=== PATIENT | male | born 1960 | race Caucasian/White ===

== ENCOUNTER 2022-04-18 00:42 | Inpatient (IN) | payer SELFPAY ==
[2022-04-18] MEDS ORDERED: SODIUM CHLORIDE 0.9% 500 ML INFUS.BAG IV ONE (01:31)
[2022-04-18] MEDS ORDERED: ONDANSETRON 4 MG/2 ML VIAL IVPUSH ONE (01:31)
[2022-04-18] MEDS ORDERED: ACETAMINOPHEN 1000 MG/100 ML BAG IVPB ONE (01:31)
[2022-04-18 02:03] LABS: HEMATOCRIT 42.4 % (35.4-49); HEMOGLOBIN 14.9 GM/dL (11.7-16.9); MCH 31.7 pg (25.7-33.7); MEAN CELL VOLUME 90.4 fl (80-96); MEAN PLT VOLUME 7.9 fl (7.5-11.1); PLATELET COUNT 250 10^3/uL (134-434); RDW 12.3 % (11.9-15.9); WHITE BLOOD COUNT 11.3 K/mm3 (4.0-10.0)
[2022-04-18 02:28] LABS: CHLORIDE 104 mmol/L (98-107); SODIUM 140 mmol/L (136-145)
[2022-04-18 02:30] LABS: CALCIUM 9.2 mg/dL (8.5-10.1)
[2022-04-18 02:31] LABS: ALBUMIN 3.9 g/dl (3.4-5.0); ANION GAP 13 MMOL/L (8-16); BLOOD UREA NITROGEN 12.9 mg/dL (7-18); CO2 24 mmol/L (21-32); GLUCOSE,RANDOM 207 mg/dL (74-106); MAGNESIUM 1.8 mg/dL (1.8-2.4)
[2022-04-18 02:34] LABS: SGOT/AST 31 U/L (15-37); SGPT/ALT 28 U/L (13-61)
[2022-04-18 02:35] LABS: BILIRUBIN,TOTAL 0.7 mg/dL (0.2-1)
[2022-04-18 02:36] LABS: TOT PROT 8.4 g/dl (6.4-8.2)
[2022-04-18 02:37] LABS: ALK PHOS 135 U/L (45-117)
[2022-04-18 02:42] LABS: LACTIC ACID 5.4 mmol/L (0.4-2.0)
[2022-04-18 02:43] LABS: LIPASE 3458 U/L (73-393)
[2022-04-18] MEDS ORDERED: morphine CARPU-JECT 4 MG/1 ML DISP.SYRIN IVPUSH ONE (02:47)
[2022-04-18] MEDS ORDERED: LACTATED RINGERS SOLUTION 1,000 ML/1,000 ML INFUS.BAG IV SCH (03:00)
[2022-04-18 03:48] LABS: ANISOCYTOSIS 0; HELMET CELLS 0; HOWELL-JOLLY BODIES 0; MACROCYTOSIS 0; OVALOCYTE 0; ROULEAU 0; SICKELED CELLS 0; TARGET CELLS 0; TEAR DROP CELLS 0; TOXIC GRANULATION 0
[2022-04-18] MEDS ORDERED: morphine SULFATE 4 MG/ML VIAL ONE (03:52)
[2022-04-18 05:51] LABS: PH,URINE 6.5 (5.0-8.0); URINE APPEARANCE CLEAR; URINE BILIRUBIN NEGATIVE (NEGATIVE); URINE COLOR YELLOW; URINE GLUCOSE (UA) NEGATIVE (NEGATIVE); URINE KETONE NEGATIVE (NEGATIVE); URINE LEUK ESTERASE NEGATIVE (NEGATIVE); URINE NITRITE NEGATIVE (NEGATIVE); URINE PROTEIN NEGATIVE (NEGATIVE); URINE UROBILINOGEN 0.2 mg/dL (0.2-1.0)
[2022-04-18 06:55] LABS: LACTIC ACID 3.6 mmol/L (0.4-2.0)
[2022-04-18] MEDS: LACTATED RINGERS SOLUTION 1,000 ML/1,000 ML INFUS.BAG IV SCH (07:25)
[2022-04-18] MEDS: INSULIN SLIDING SCALE (NOVOLOG) 1 VIAL SQ SCH ×3 (07:30→22:46)
[2022-04-18 08:21] LABS: HEMATOCRIT 38.8 % (35.4-49); HEMOGLOBIN 13.3 GM/dL (11.7-16.9); MCH 30.9 pg (25.7-33.7); MCHC 34.3 g/dl (32.0-35.9); MEAN CELL VOLUME 90.2 fl (80-96); MEAN PLT VOLUME 8.3 fl (7.5-11.1); PLATELET COUNT 210 10^3/uL (134-434); RDW 12.5 % (11.9-15.9); WHITE BLOOD COUNT 11.4 K/mm3 (4.0-10.0)
[2022-04-18 08:44] LABS: MAGNESIUM 1.7 mg/dL (1.8-2.4)
[2022-04-18 08:45] LABS: CALCIUM 8.2 mg/dL (8.5-10.1)
[2022-04-18 08:46] LABS: BLOOD UREA NITROGEN 8.5 mg/dL (7-18); CREATININE 0.7 mg/dL (0.55-1.3)
[2022-04-18 08:48] LABS: TOT PROT 6.9 g/dl (6.4-8.2)
[2022-04-18 08:49] LABS: PHOSPHOROUS 2.4 mg/dL (2.5-4.9)
[2022-04-18 08:50] LABS: BILIRUBIN,TOTAL 0.8 mg/dL (0.2-1)
[2022-04-18] MEDS ORDERED: THIAMINE HCL 100 MG TABLET (FP) ONE (09:08)
[2022-04-18] MEDS ORDERED: FOLIC ACID 1 MG TABLET (FP) ONE (09:08)
[2022-04-18] MEDS ORDERED: ENOXAPARIN NA (PORCINE) 40 MG/0.4 ML DISP.SYRIN SQ ONE (09:09)
[2022-04-18] MEDS: ENOXAPARIN NA (PORCINE) 40 MG/0.4 ML DISP.SYRIN SQ SCH (09:34)
[2022-04-18] MEDS ORDERED: THIAMINE HCL 100 MG TABLET (FP) PO SCH (10:00)
[2022-04-18] MEDS ORDERED: FOLIC ACID 1 MG TABLET (FP) PO SCH (10:00)
[2022-04-18] MEDS ORDERED: INSULIN (LEVEMIR) 100 UNITS/ML UNITS SQ SCH (10:45)
[2022-04-18] MEDS ORDERED: FOLIC ACID 5 MG/1 ML SQ SCH (10:45)
[2022-04-18] MEDS ORDERED: LORazepam 2 MG/ML SDV VIAL IVPUSH PRN (10:45)
[2022-04-18] MEDS ORDERED: THIAMINE HCL 200 MG/2 ML VIAL IVPB SCH (10:45)
[2022-04-18] MEDS ORDERED: MULTIVIT INJ. ADULT COMBO WITH VIT K 1 COMBO 10 ML VIAL IV SCH (10:45)
[2022-04-18] MEDS ORDERED: POTASSIUM PHOSPHATE 30 MM in SODIUM CHLORIDE 500 ML IVPB ONE (10:46)
[2022-04-18] MEDS ORDERED: MAGNESIUM 2GM/50ML STERILE WATER IVPB IVPB ONE (10:46)
[2022-04-18] MEDS ORDERED: FOLIC ACID INJECTION - 1 MG, THIAMINE HCL 100 MG, MULTIVIT INJECTION ADULT 10 ML in SOD... IVPB ONE (11:21)
[2022-04-18] MEDS ORDERED: MAGNESIUM SULFATE IN WATER 2 GM/50 ML IVPB IVPB ONE (11:30)
[2022-04-18] MEDS ORDERED: KCL 10 MEQ IVPB 10 MEQ/100 ML INFUS.BAG IVPB ONE (11:35)
[2022-04-18] MEDS: KCL 10 MEQ IVPB 10 MEQ/100 ML INFUS.BAG IVPB SCH ×3 (11:49→13:57)
[2022-04-18] MEDS: INSULIN (LEVEMIR) 100 UNITS/ML UNITS SQ SCH (22:46)
[2022-04-19] MEDS: LACTATED RINGERS SOLUTION 1,000 ML/1,000 ML INFUS.BAG IV SCH ×2 (06:59→16:00)
[2022-04-19 09:04] LABS: BASO % 0.2 % (0-2.0); EOS % 0.1 % (0-4.5); HEMATOCRIT 37.1 % (35.4-49); HEMOGLOBIN 12.5 GM/dL (11.7-16.9); LYMPH % 6.1 % (8-40); MCH 30.8 pg (25.7-33.7); MCHC 33.8 g/dl (32.0-35.9); MEAN CELL VOLUME 91.2 fl (80-96); MEAN PLT VOLUME 8.5 fl (7.5-11.1); NEUT % 86.6 % (42.8-82.8); PLATELET COUNT 173 10^3/uL (134-434); RBC 4.06 M/mm3 (4.00-5.60); RDW 12.1 % (11.9-15.9); WHITE BLOOD COUNT 11.1 K/mm3 (4.0-10.0)
[2022-04-19 09:33] LABS: CALCIUM 8.6 mg/dL (8.5-10.1)
[2022-04-19 09:34] LABS: ALBUMIN 2.8 g/dl (3.4-5.0); BLOOD UREA NITROGEN 7.4 mg/dL (7-18)
[2022-04-19 09:37] LABS: BILIRUBIN,TOTAL 1.5 mg/dL (0.2-1); CREATININE 0.5 mg/dL (0.55-1.3); TOT PROT 6.6 g/dl (6.4-8.2)
[2022-04-19] MEDS: INSULIN (LEVEMIR) 100 UNITS/ML UNITS SQ SCH (10:00)
[2022-04-19 10:10] LABS: ERYTHROCYTE SEDIMENTATION RATE 65 mm/hr (0-20)
[2022-04-19] MEDS ORDERED: FOLIC ACID 5 MG/1 ML SQ SCH (10:45)
[2022-04-19] MEDS: INSULIN SLIDING SCALE (NOVOLOG) 1 VIAL SQ SCH ×4 (11:30→16:17)
[2022-04-19] MEDS ORDERED: NAPH,MB-DB/K PH,MBDB POWDER PACKET ONE (15:18)
[2022-04-19] MEDS ORDERED: ENOXAPARIN NA (PORCINE) 40 MG/0.4 ML DISP.SYRIN SQ ONE (15:19)
[2022-04-19] MEDS: NAPH,MB-DB/K PH,MBDB POWDER PACKET PO SCH ×2 (15:27→22:17)
[2022-04-19] MEDS: ENOXAPARIN NA (PORCINE) 40 MG/0.4 ML DISP.SYRIN SQ SCH (15:27)
[2022-04-19 18:26] VITALS: BMI 30.1
[2022-04-20] MEDS: INSULIN SLIDING SCALE (NOVOLOG) 1 VIAL SQ SCH ×5 (00:06→21:12)
[2022-04-20] MEDS: INSULIN (LEVEMIR) 100 UNITS/ML UNITS SQ SCH ×3 (00:06→21:11)
[2022-04-20] MEDS: LACTATED RINGERS SOLUTION 1,000 ML/1,000 ML INFUS.BAG IV SCH ×3 (04:25→10:59)
[2022-04-20 09:24] LABS: HEMATOCRIT 32.3 % (35.4-49); HEMOGLOBIN 11.4 GM/dL (11.7-16.9); MCH 32.3 pg (25.7-33.7); MCHC 35.3 g/dl (32.0-35.9); MEAN CELL VOLUME 91.6 fl (80-96); MEAN PLT VOLUME 8.4 fl (7.5-11.1); PLATELET COUNT 154 10^3/uL (134-434); RBC 3.52 M/mm3 (4.00-5.60); WHITE BLOOD COUNT 7.6 K/mm3 (4.0-10.0)
[2022-04-20 09:55] LABS: ALBUMIN 2.4 g/dl (3.4-5.0); CALCIUM 8.1 mg/dL (8.5-10.1); MAGNESIUM 2.3 mg/dL (1.8-2.4)
[2022-04-20 09:56] LABS: BLOOD UREA NITROGEN 7.7 mg/dL (7-18)
[2022-04-20 09:58] LABS: CREATININE 0.5 mg/dL (0.55-1.3); PHOSPHOROUS 2.4 mg/dL (2.5-4.9)
[2022-04-20 10:00] LABS: BILIRUBIN,TOTAL 1.2 mg/dL (0.2-1)
[2022-04-20] MEDS ORDERED: POTASSIUM CHLORIDE ORAL LIQUID 20 MEQ/15 ML PO ONE (10:15)
[2022-04-20] MEDS: ENOXAPARIN NA (PORCINE) 40 MG/0.4 ML DISP.SYRIN SQ SCH (11:00)
[2022-04-20] MEDS ORDERED: LORazepam 2 MG TABLET PO SCH (11:00)
[2022-04-20] MEDS: NAPH,MB-DB/K PH,MBDB POWDER PACKET PO SCH ×2 (11:00→21:12)
[2022-04-20] MEDS ORDERED: BENZOCAINE/MENTHOL (CHLORASEPTIC ) LOZENGE MM PRN (11:07)
[2022-04-20] MEDS ORDERED: BISMUTH SUBSALICYLATE 524 MG/30 ML PO PRN (11:07)
[2022-04-20] MEDS ORDERED: MAGNESIUM CITRATE 300 ML BOTTLE PO PRN (11:07)
[2022-04-20] MEDS ORDERED: IBUPROFEN 400 MG TABLET (FP) PO PRN (11:07)
[2022-04-20] MEDS ORDERED: MAG HYDROX/AL HYDROX/SIMETH 30 ML UNIT-DOSE CUP PO PRN (11:07)
[2022-04-20] MEDS ORDERED: ONDANSETRON *ODT* 4 MG TABLET SL PRN (11:07)
[2022-04-20] MEDS ORDERED: METHOCARBAMOL 500 MG TABLET PO PRN (11:07)
[2022-04-20] MEDS ORDERED: DICYCLOMINE HCL 10 MG CAPSULE PO PRN (11:07)
[2022-04-20] MEDS ORDERED: NICOTINE 10 MG CARTRIDGE (INHALER) IH PRN ×2 (11:07→11:57)
[2022-04-20] MEDS ORDERED: IBUPROFEN 600 MG TABLET (FP) PO PRN (11:07)
[2022-04-20] MEDS ORDERED: LOPERAMIDE HCL 2 MG CAPSULE PO PRN (11:07)
[2022-04-20] MEDS ORDERED: MAGNESIUM HYDROX 2400MG/30ML ORAL SUSPENSION 30 ML CUP PO PRN (11:07)
[2022-04-20 11:37] LABS: BILIRUBIN,DIRECT 0.5 mg/dL (0.0-0.2)
[2022-04-20] MEDS: PRENATAL VITAMINS W/ FOLIC ACID TABLET (FP) PO SCH (12:35)
[2022-04-20] MEDS: hydrOXYzine PAMOATE 25 MG CAPSULE (FP) PO SCH ×3 (15:19→21:13)
[2022-04-20] MEDS: LORazepam 1 MG TABLET PO SCH ×2 (17:47→23:25)
[2022-04-20] MEDS ORDERED: MELATONIN 5 MG TABLETS PO SCH (22:00)
[2022-04-20] MEDS ORDERED: THIAMINE HCL 100 MG TABLET (FP) PO SCH (22:00)
[2022-04-21] MEDS: LORazepam 1 MG TABLET PO SCH ×2 (05:47→11:26)
[2022-04-21] MEDS: hydrOXYzine PAMOATE 25 MG CAPSULE (FP) PO SCH ×3 (05:53→13:26)
[2022-04-21] MEDS: INSULIN SLIDING SCALE (NOVOLOG) 1 VIAL SQ SCH ×2 (06:28→11:26)
[2022-04-21 08:31] LABS: HEMATOCRIT 33.7 % (35.4-49); HEMOGLOBIN 11.1 GM/dL (11.7-16.9); MCH 30.3 pg (25.7-33.7); MCHC 32.8 g/dl (32.0-35.9); MEAN CELL VOLUME 92.2 fl (80-96); MEAN PLT VOLUME 8.6 fl (7.5-11.1); PLATELET COUNT 184 10^3/uL (134-434); RBC 3.65 M/mm3 (4.00-5.60); RDW 11.9 % (11.9-15.9); WHITE BLOOD COUNT 6.2 K/mm3 (4.0-10.0)
[2022-04-21] MEDS: PRENATAL VITAMINS W/ FOLIC ACID TABLET (FP) PO SCH (09:05)
[2022-04-21] MEDS: INSULIN (LEVEMIR) 100 UNITS/ML UNITS SQ SCH (09:05)
[2022-04-21] MEDS: ENOXAPARIN NA (PORCINE) 40 MG/0.4 ML DISP.SYRIN SQ SCH (09:05)
[2022-04-21] MEDS: NAPH,MB-DB/K PH,MBDB POWDER PACKET PO SCH (09:05)
[2022-04-21 09:14] LABS: CALCIUM 8.2 mg/dL (8.5-10.1)
[2022-04-21 09:15] LABS: ALBUMIN 2.4 g/dl (3.4-5.0); BLOOD UREA NITROGEN 7.5 mg/dL (7-18); MAGNESIUM 2.5 mg/dL (1.8-2.4)
[2022-04-21 09:18] LABS: CREATININE 0.5 mg/dL (0.55-1.3)
[2022-04-21 09:19] LABS: BILIRUBIN,TOTAL 0.8 mg/dL (0.2-1); TOT PROT 6.2 g/dl (6.4-8.2)
[2022-04-21 10:34] VITALS: RESP 18
[2022-04-21] MEDS ORDERED: POTASSIUM CHLORIDE TABS 20 MEQ TABLET.ER (FP) PO ONE (13:25)
[2022-04-21 14:05] VITALS: BP 115/72; PULSE 90; TEMP 99.4
[2022-04-21] MEDS ORDERED: POTASSIUM CHLORIDE ORAL LIQUID 20 MEQ/15 ML PO ONE (14:06)
[2022-04-22] MEDS ORDERED: LORazepam 1 MG TABLET PO SCH (05:00)
[2022-04-23] MEDS ORDERED: LORazepam 0.5 MG TABLET PO SCH (05:00)
[2022-04-24] MEDS ORDERED: LORazepam 0.5 MG TABLET PO ONE (05:00)
== END 2022-04-21 16:20 | disposition home or self-care (01) | DRG 282 ==
LOC: JER 00:42 → JERBED 04:49 → J7W 04-19 15:38
PROVIDERS: ADMIT Internal Medicine
DX: K85.20 Alcohol induced acute pancreatitis without necrosis or infection (principal); R73.9 Hyperglycemia, unspecified; F10.239 Alcohol dependence with withdrawal, unspecified; E83.42 Hypomagnesemia; E83.39 Other disorders of phosphorus metabolism; I10 Essential (primary) hypertension; E78.5 Hyperlipidemia, unspecified; E11.9 Type 2 diabetes mellitus without complications; D72.829 Elevated white blood cell count, unspecified; E87.2 Acidosis; E87.6 Hypokalemia; R11.2 Nausea with vomiting, unspecified
CPT/HCPCS: 36415; 71045-TC-FY; 74174-TC; 76705-TC; 80053; 80061; 81003; 82248; 82550; 82962; 83036; 83605; 83690; 83735; 84100; 84484; 85025; 85027; 85651; 86140; 87040; 87086; 93005; 93010; 99285-25; C9803-CS; U0003; U0005

== ENCOUNTER 2022-12-03 17:06 | Inpatient (IN) | payer OTHER ==
[2022-12-03] MEDS ORDERED: ACETAMINOPHEN 1000 MG/100 ML BAG IVPB ONE (17:42)
[2022-12-03] MEDS ORDERED: SODIUM CHLORIDE 0.9% 500 ML INFUS.BAG IV ONE (17:42)
[2022-12-03] MEDS ORDERED: ONDANSETRON 4 MG/2 ML VIAL IVPUSH ONE (17:42)
[2022-12-03] MEDS ORDERED: FAMOTIDINE 20 MG/50 ML IVPB 20 MG/50 ML MG IVPB ONE (17:42)
[2022-12-03] MEDS ORDERED: morphine CARPU-JECT 4 MG/1 ML DISP.SYRIN IVPUSH ONE ×2 (18:26→20:11)
[2022-12-03] MEDS ORDERED: FAMOTIDINE 10 MG/ML VIAL IVPB ONE (18:30)
[2022-12-03] MEDS ORDERED: morphine SULFATE 4 MG/ML VIAL ONE ×2 (18:30→20:13)
[2022-12-03] MEDS ORDERED: ACETAMINOPHEN INJECTION 100 ML IVPB ONE (18:30)
[2022-12-03] MEDS ORDERED: ONDANSETRON 4 MG/2 ML VIAL ONE (18:30)
[2022-12-03 19:17] LABS: VENOUS BASE EXCESS 0.1 mmol/L (-2-2); VENOUS O2 SATURATION 29.1 % (70-80); VENOUS PCO2 38.6 mmHg (38-52); VENOUS PH 7.418 (7.310-7.410)
[2022-12-03 19:19] LABS: BASO % 0.2 % (0-2.0); HEMATOCRIT 40.4 % (35.4-49); HEMOGLOBIN 13.8 GM/dL (11.7-16.9); LYMPH % 10.9 % (8-40); MCH 28.5 pg (25.7-33.7); MCHC 34.2 g/dl (32.0-35.9); MEAN CELL VOLUME 83.1 fl (80-96); MEAN PLT VOLUME 8.8 fl (7.5-11.1); MONO % 6.8 % (3.8-10.2); NEUT % 81.1 % (42.8-82.8); PLATELET COUNT 224 10^3/uL (134-434); RBC 4.86 M/mm3 (4.00-5.60); RDW 14.6 % (11.9-15.9); WHITE BLOOD COUNT 14.1 K/mm3 (4.0-10.0)
[2022-12-03 19:32] LABS: INR 1.01 (0.83-1.09); PROTHROMBIN TIME (PATIENT) 11.7 SEC (9.7-13.0)
[2022-12-03 19:34] LABS: ACTIVATED PTT 26.7 SECONDS (25.2-36.5)
[2022-12-03 19:38] LABS: CHLORIDE 105 mmol/L (98-107); POTASSIUM 4.2 mmol/L (3.5-5.1); SODIUM 138 mmol/L (136-145)
[2022-12-03 19:40] LABS: ANION GAP 7 MMOL/L (8-16); BLOOD UREA NITROGEN 14.6 mg/dL (7-18); CALCIUM 9.4 mg/dL (8.5-10.1); CO2 27 mmol/L (21-32); GLUCOSE,RANDOM 133 mg/dL (74-106)
[2022-12-03 19:41] LABS: ALBUMIN 3.8 g/dl (3.4-5.0)
[2022-12-03 19:43] LABS: CREATININE 0.8 mg/dL (0.55-1.3); SGOT/AST 29 U/L (15-37); SGPT/ALT 26 U/L (13-61)
[2022-12-03 19:45] LABS: BILIRUBIN,TOTAL 0.4 mg/dL (0.2-1); TOT PROT 8.5 g/dl (6.4-8.2)
[2022-12-03 19:46] LABS: ALK PHOS 121 U/L (45-117)
[2022-12-03 19:57] LABS: LACTIC ACID 2.8 mmol/L (0.4-2.0)
[2022-12-03 20:18] LABS: LIPASE 8803 U/L (73-393)
[2022-12-03] MEDS ORDERED: fentaNYL CITRATE 250 MCG/5 ML VIAL ONE (21:52)
[2022-12-03] MEDS ORDERED: FENTANYL CITRATE/PF 50 MCG/ML VIAL IVPUSH ONE (22:50)
[2022-12-03 22:53] LABS: LACTIC ACID 2.8 mmol/L (0.4-2.0)
[2022-12-03] MEDS ORDERED: SODIUM CHLORIDE 1,000 ML IV SCH (23:00)
[2022-12-03] MEDS ORDERED: ONDANSETRON 4 MG/2 ML VIAL IVPUSH PRN (23:44)
[2022-12-03] MEDS ORDERED: LORazepam 2 MG/ML SDV VIAL IVPUSH PRN (23:45)
[2022-12-04] MEDS ORDERED: FENTANYL CITRATE/PF 50 MCG/ML VIAL ONE (00:17)
[2022-12-04 01:40] LABS: CHOLESTEROL 228 mg/dL (50-200)
[2022-12-04 01:41] LABS: LDL CHOLESTEROL (ONLY SJRH) 148 mg/dL (5-100)
[2022-12-04 01:43] LABS: HDL CHOLESTEROL 52 mg/dL (40-60)
[2022-12-04 03:49] LABS: PH,URINE 6.5 (5.0-8.0); URINE APPEARANCE CLEAR; URINE BILIRUBIN NEGATIVE (NEGATIVE); URINE COLOR YELLOW; URINE GLUCOSE (UA) TRACE (NEGATIVE); URINE KETONE NEGATIVE (NEGATIVE); URINE LEUK ESTERASE NEGATIVE (NEGATIVE); URINE NITRITE NEGATIVE (NEGATIVE); URINE PROTEIN NEGATIVE (NEGATIVE); URINE UROBILINOGEN 0.2 mg/dL (0.2-1.0)
[2022-12-04] MEDS ORDERED: amLODIPine BESYLATE 5 MG TABLET (FP) PO ONE (05:49)
[2022-12-04 06:23] LABS: HEMATOCRIT 40.7 % (35.4-49); HEMOGLOBIN 13.9 GM/dL (11.7-16.9); MCH 28.3 pg (25.7-33.7); MCHC 34.1 g/dl (32.0-35.9); MEAN CELL VOLUME 82.9 fl (80-96); MEAN PLT VOLUME 8.5 fl (7.5-11.1); PLATELET COUNT 205 10^3/uL (134-434); RBC 4.91 M/mm3 (4.00-5.60); RDW 14.4 % (11.9-15.9); WHITE BLOOD COUNT 12.5 K/mm3 (4.0-10.0)
[2022-12-04 06:43] LABS: POTASSIUM 3.5 mmol/L (3.5-5.1)
[2022-12-04 06:46] LABS: ALBUMIN 3.6 g/dl (3.4-5.0); BLOOD UREA NITROGEN 11.6 mg/dL (7-18)
[2022-12-04 06:49] LABS: CREATININE 0.8 mg/dL (0.55-1.3); PHOSPHOROUS 2.6 mg/dL (2.5-4.9)
[2022-12-04 06:50] LABS: BILIRUBIN,TOTAL 0.6 mg/dL (0.2-1)
[2022-12-04 07:04] LABS: LACTIC ACID 2.6 mmol/L (0.4-2.0)
[2022-12-04] MEDS ORDERED: LABETALOL HCL 20 MG/4 ML VIAL IVPUSH ONE (09:32)
[2022-12-04] MEDS ORDERED: LABETALOL HCL 20 MG/4 ML VIAL IVPB ONE (09:45)
[2022-12-04] MEDS: FOLIC ACID 1 MG TABLET (FP) PO SCH (10:09)
[2022-12-04] MEDS: ENOXAPARIN NA (PORCINE) 40 MG/0.4 ML DISP.SYRIN SQ SCH (10:09)
[2022-12-04] MEDS: THIAMINE HCL 100 MG TABLET (FP) PO SCH (10:09)
[2022-12-04] MEDS: DEXTROSE 5%-LACTATED RINGERS 1,000 ML IV SCH ×3 (10:11→21:31)
[2022-12-04] MEDS ORDERED: LABETALOL HCL 5 MG/1 ML (100MG/20 ML VIAL) IVPB ONE (21:10)
[2022-12-04] MEDS ORDERED: hydrALAZINE HCL 20 MG/ML VIAL IVPB ONE (21:42)
[2022-12-05] MEDS: DEXTROSE 5%-LACTATED RINGERS 1,000 ML IV SCH ×2 (04:38→10:50)
[2022-12-05] MEDS ORDERED: amLODIPine BESYLATE 5 MG TABLET (FP) PO SCH (10:00)
[2022-12-05 10:08] LABS: BASO % 0.1 % (0-2.0); HEMATOCRIT 36.3 % (35.4-49); HEMOGLOBIN 12.4 GM/dL (11.7-16.9); LYMPH % 6.4 % (8-40); MCH 28.2 pg (25.7-33.7); MCHC 34.2 g/dl (32.0-35.9); MEAN CELL VOLUME 82.4 fl (80-96); MEAN PLT VOLUME 8.2 fl (7.5-11.1); MONO % 9.1 % (3.8-10.2); NEUT % 84.4 % (42.8-82.8); PLATELET COUNT 146 10^3/uL (134-434); RBC 4.41 M/mm3 (4.00-5.60); RDW 14.6 % (11.9-15.9); WHITE BLOOD COUNT 11.5 K/mm3 (4.0-10.0)
[2022-12-05 10:31] LABS: BLOOD UREA NITROGEN 5.8 mg/dL (7-18); CALCIUM 8.1 mg/dL (8.5-10.1)
[2022-12-05 10:32] LABS: MAGNESIUM 1.8 mg/dL (1.8-2.4)
[2022-12-05 10:33] LABS: PHOSPHOROUS 1.4 mg/dL (2.5-4.9)
[2022-12-05 10:34] LABS: BILIRUBIN,TOTAL 1.2 mg/dL (0.2-1); CREATININE 0.5 mg/dL (0.55-1.3); TOT PROT 6.5 g/dl (6.4-8.2)
[2022-12-05 10:35] LABS: ALBUMIN 2.8 g/dl (3.4-5.0)
[2022-12-05] MEDS: FOLIC ACID 1 MG TABLET (FP) PO SCH (10:51)
[2022-12-05] MEDS: amLODIPine BESYLATE 5 MG TABLET (FP) PO SCH (10:51)
[2022-12-05] MEDS: ENOXAPARIN NA (PORCINE) 40 MG/0.4 ML DISP.SYRIN SQ SCH (10:51)
[2022-12-05] MEDS: THIAMINE HCL 100 MG TABLET (FP) PO SCH (10:51)
[2022-12-05 11:40] LABS: BILIRUBIN,DIRECT 0.3 mg/dL (0.0-0.2)
[2022-12-05] MEDS ORDERED: KCL 10 MEQ IVPB 10 MEQ/100 ML INFUS.BAG IVPB SCH (12:15)
[2022-12-05] MEDS: LABETALOL HCL 100 MG TABLET (FP) PO SCH ×2 (13:36→21:35)
[2022-12-05] MEDS ORDERED: POTASSIUM PHOSPHATE 40 MM in SODIUM CHLORIDE 500 ML IVPB ONE (15:00)
[2022-12-06] MEDS: DEXTROSE 5%-LACTATED RINGERS 1,000 ML IV SCH ×5 (00:34→21:02)
[2022-12-06] MEDS: NAPH,MB-DB/K PH,MBDB POWDER PACKET PO SCH ×3 (09:40→21:02)
[2022-12-06] MEDS: ENOXAPARIN NA (PORCINE) 40 MG/0.4 ML DISP.SYRIN SQ SCH (09:41)
[2022-12-06] MEDS: amLODIPine BESYLATE 5 MG TABLET (FP) PO SCH (09:42)
[2022-12-06] MEDS: THIAMINE HCL 100 MG TABLET (FP) PO SCH (09:42)
[2022-12-06] MEDS: LABETALOL HCL 100 MG TABLET (FP) PO SCH ×2 (09:42→21:02)
[2022-12-06] MEDS: FOLIC ACID 1 MG TABLET (FP) PO SCH (09:42)
[2022-12-06] MEDS: SIMETHICONE 40 MG/0.6 ML BOTTLE PO PRN ×2 (09:43→13:20)
[2022-12-06 10:10] LABS: BASO % 0.1 % (0-2.0); EOS % 1.1 % (0-4.5); HEMATOCRIT 35.7 % (35.4-49); MCH 28.1 pg (25.7-33.7); MCHC 33.6 g/dl (32.0-35.9); MEAN CELL VOLUME 83.5 fl (80-96); MEAN PLT VOLUME 8.7 fl (7.5-11.1); MONO % 8.7 % (3.8-10.2); NEUT % 82.1 % (42.8-82.8); PLATELET COUNT 155 10^3/uL (134-434); RBC 4.27 M/mm3 (4.00-5.60); RDW 14.5 % (11.9-15.9); WHITE BLOOD COUNT 8.7 K/mm3 (4.0-10.0)
[2022-12-06 10:30] LABS: POTASSIUM 3.1 mmol/L (3.5-5.1)
[2022-12-06 10:38] LABS: ALBUMIN 2.6 g/dl (3.4-5.0); BLOOD UREA NITROGEN 8.6 mg/dL (7-18); CALCIUM 8.2 mg/dL (8.5-10.1)
[2022-12-06 10:41] LABS: CREATININE 0.5 mg/dL (0.55-1.3); PHOSPHOROUS 1.7 mg/dL (2.5-4.9)
[2022-12-06 10:42] LABS: BILIRUBIN,TOTAL 1.5 mg/dL (0.2-1); TOT PROT 6.2 g/dl (6.4-8.2)
[2022-12-06] MEDS ORDERED: POTASSIUM CHLORIDE TABS 20 MEQ TABLET.ER (FP) PO ONE (14:15)
[2022-12-06 17:01] VITALS: BMI 30.2
[2022-12-06] MEDS ORDERED: Methylnaltrexone Bromide 12 MG/0.6 ML KIT SQ ONE (18:00)
[2022-12-07] MEDS: DEXTROSE 5%-LACTATED RINGERS 1,000 ML IV SCH ×4 (03:51→23:16)
[2022-12-07] MEDS: NAPH,MB-DB/K PH,MBDB POWDER PACKET PO SCH ×3 (05:47→21:32)
[2022-12-07] MEDS: LABETALOL HCL 100 MG TABLET (FP) PO SCH ×2 (09:26→21:32)
[2022-12-07] MEDS: FOLIC ACID 1 MG TABLET (FP) PO SCH (09:26)
[2022-12-07] MEDS: amLODIPine BESYLATE 5 MG TABLET (FP) PO SCH (09:26)
[2022-12-07] MEDS: THIAMINE HCL 100 MG TABLET (FP) PO SCH (09:26)
[2022-12-07] MEDS: ENOXAPARIN NA (PORCINE) 40 MG/0.4 ML DISP.SYRIN SQ SCH (09:26)
[2022-12-07 09:46] LABS: POTASSIUM 3.3 mmol/L (3.5-5.1)
[2022-12-07 09:56] LABS: BLOOD UREA NITROGEN 5.4 mg/dL (7-18)
[2022-12-07 09:59] LABS: CREATININE 0.5 mg/dL (0.55-1.3); PHOSPHOROUS 2.2 mg/dL (2.5-4.9)
[2022-12-08] MEDS: DEXTROSE 5%-LACTATED RINGERS 1,000 ML IV SCH ×2 (05:23→20:06)
[2022-12-08] MEDS: NAPH,MB-DB/K PH,MBDB POWDER PACKET PO SCH ×3 (06:43→21:37)
[2022-12-08] MEDS: ENOXAPARIN NA (PORCINE) 40 MG/0.4 ML DISP.SYRIN SQ SCH (09:07)
[2022-12-08] MEDS: LABETALOL HCL 100 MG TABLET (FP) PO SCH ×2 (09:07→21:37)
[2022-12-08] MEDS: FOLIC ACID 1 MG TABLET (FP) PO SCH (09:07)
[2022-12-08] MEDS: amLODIPine BESYLATE 5 MG TABLET (FP) PO SCH (09:07)
[2022-12-08] MEDS: THIAMINE HCL 100 MG TABLET (FP) PO SCH (09:07)
[2022-12-08] MEDS ORDERED: POTASSIUM CHLORIDE ORAL LIQUID 20 MEQ/15 ML PO ONE (13:26)
[2022-12-09] MEDS: NAPH,MB-DB/K PH,MBDB POWDER PACKET PO SCH ×2 (05:12→13:43)
[2022-12-09 09:02] VITALS: BP 101/73; PULSE 86; RESP 18; TEMP 98.3
[2022-12-09] MEDS: THIAMINE HCL 100 MG TABLET (FP) PO SCH (09:12)
[2022-12-09] MEDS: FOLIC ACID 1 MG TABLET (FP) PO SCH (09:12)
[2022-12-09] MEDS: ENOXAPARIN NA (PORCINE) 40 MG/0.4 ML DISP.SYRIN SQ SCH (09:13)
[2022-12-09] MEDS: LABETALOL HCL 100 MG TABLET (FP) PO SCH (10:17)
[2022-12-09] MEDS: amLODIPine BESYLATE 5 MG TABLET (FP) PO SCH (10:17)
== END 2022-12-09 12:40 | disposition home or self-care (01) | DRG 282 ==
LOC: JER 17:06 → JERBED 23:14 → J5S 12-04 06:28
PROVIDERS: ADMIT Internal Medicine
PROC: HZ2ZZZZ Detoxification Services for Substance Abuse Treatment (ICD-10-PCS; principal; 2022-12-03)
DX: K85.20 Alcohol induced acute pancreatitis without necrosis or infection (principal); D72.829 Elevated white blood cell count, unspecified; I10 Essential (primary) hypertension; I16.0 Hypertensive urgency; F10.239 Alcohol dependence with withdrawal, unspecified; R14.0 Abdominal distension (gaseous); K56.7 Ileus, unspecified; G62.1 Alcoholic polyneuropathy; E83.39 Other disorders of phosphorus metabolism; E87.6 Hypokalemia
CPT/HCPCS: 0241U-QW; 36415; 71045-TC-FY; 74021-TC-FY; 74177-TC; 76705-TC; 80048; 80053; 80061; 80307; 81003; 82248; 82803; 82962; 83605; 83690; 83735; 84100; 85025; 85027; 85610; 85730; 87040; 87086; 93005; 93010; 99285-25; Q9967

== ENCOUNTER 2023-12-18 16:12 | Inpatient (IN) | payer SELFPAY ==
[2023-12-18] MEDS ORDERED: ACETAMINOPHEN INJECTION 100 ML IVPB ONE (17:25)
[2023-12-18] MEDS ORDERED: ONDANSETRON 4 MG/2 ML VIAL ONE (17:25)
[2023-12-18] MEDS ORDERED: FAMOTIDINE 20 MG/50 ML IVPB 20 MG/50 ML MG IVPB ONE (17:26)
[2023-12-18] MEDS: ONDANSETRON 4 MG/2 ML VIAL IVPUSH ONE (17:50)
[2023-12-18] MEDS: LACTATED RINGERS SOLUTION 1000 ML INFUS.BAG IV ONE ×2 (17:50→18:58)
[2023-12-18] MEDS: ACETAMINOPHEN 1000 MG/100 ML BAG IVPB ONE (17:55)
[2023-12-18] MEDS: FAMOTIDINE 20 MG/50 ML IVPB 20 MG/50 ML MG IVPB ONE (17:55)
[2023-12-18 18:03] LABS: EPI CELLS 4 /uL (0-25.1); HYALINE CASTS 1 /uL (0-3.1); URINE APPEARANCE CLEAR; URINE BACTERIA 1 /uL (0-1359); URINE BILIRUBIN NEGATIVE (NEGATIVE); URINE COLOR YELLOW; URINE GLUCOSE (UA) NEGATIVE (NEGATIVE); URINE KETONE TRACE (NEGATIVE); URINE LEUK ESTERASE NEGATIVE (NEGATIVE); URINE NITRITE NEGATIVE (NEGATIVE); URINE PROTEIN 2+ (NEGATIVE); URINE RBC 19 /uL (0-23.9); URINE WBC 4 /uL (0-25.8)
[2023-12-18 18:03] LABS: BASO % 0.2 % (0-2.0); HEMATOCRIT 39.8 % (35.4-49); HEMOGLOBIN 12.9 GM/dL (11.7-16.9); LYMPH % 6.3 % (8-40); MCH 24.7 pg (25.7-33.7); MCHC 32.3 g/dl (32.0-35.9); MEAN CELL VOLUME 76.5 fl (80-96); MEAN PLT VOLUME 7.4 fl (7.5-11.1); MONO % 5.5 % (3.8-10.2); PLATELET COUNT 249 10^3/uL (134-434); RDW 17.3 % (11.9-15.9); WHITE BLOOD COUNT 11.1 K/mm3 (4.0-10.0)
[2023-12-18 18:20] LABS: POTASSIUM 4.4 mmol/L (3.5-5.1)
[2023-12-18 18:22] LABS: CALCIUM 9.2 mg/dL (8.5-10.1)
[2023-12-18 18:23] LABS: ALBUMIN 3.9 g/dl (3.4-5.0); BLOOD UREA NITROGEN 11.7 mg/dL (7-18); MAGNESIUM 1.7 mg/dL (1.8-2.4)
[2023-12-18 18:26] LABS: CREATININE 0.9 mg/dL (0.55-1.3)
[2023-12-18 18:28] LABS: BILIRUBIN,TOTAL 0.7 mg/dL (0.2-1); TOT PROT 8.6 g/dl (6.4-8.2)
[2023-12-19] MEDS ORDERED: morphine SULFATE 4 MG/ML VIAL ONE ×2 (00:18→11:31)
[2023-12-19] MEDS ORDERED: ONDANSETRON 4 MG/2 ML VIAL IVPUSH PRN (00:22)
[2023-12-19] MEDS: morphine CARPU-JECT 2 MG/1 ML DISP.SYRIN IVPUSH ONE (00:29)
[2023-12-19] MEDS: LACTATED RINGERS SOLUTION 1000 ML INFUS.BAG IV ONE (00:29)
[2023-12-19] MEDS: LACTATED RINGERS SOLUTION 1,000 ML IV SCH ×2 (00:30→11:15)
[2023-12-19] MEDS ORDERED: MAGNESIUM SULFATE IN WATER 2 GM/50 ML IVPB IVPB ONE (01:23)
[2023-12-19] MEDS: MAGNESIUM 2GM/50ML STERILE WATER IVPB IVPB ONE (01:26)
[2023-12-19] MEDS: amLODIPine BESYLATE 10 MG TABLET (FP) PO SCH (06:11)
[2023-12-19 07:14] LABS: BASO % 0.3 % (0-2.0); EOS % 0.2 % (0-4.5); HEMATOCRIT 37.6 % (35.4-49); HEMOGLOBIN 12.2 GM/dL (11.7-16.9); LYMPH % 10.8 % (8-40); MCH 24.7 pg (25.7-33.7); MCHC 32.4 g/dl (32.0-35.9); MEAN CELL VOLUME 76.3 fl (80-96); MEAN PLT VOLUME 8.1 fl (7.5-11.1); MONO % 7.4 % (3.8-10.2); NEUT % 81.3 % (42.8-82.8); PLATELET COUNT 221 10^3/uL (134-434); RBC 4.93 M/mm3 (4.00-5.60); RDW 17.5 % (11.9-15.9); WHITE BLOOD COUNT 9.4 K/mm3 (4.0-10.0)
[2023-12-19 07:36] LABS: POTASSIUM 3.5 mmol/L (3.5-5.1)
[2023-12-19 07:40] LABS: ALBUMIN 3.3 g/dl (3.4-5.0)
[2023-12-19 07:41] LABS: BLOOD UREA NITROGEN 6.1 mg/dL (7-18); CALCIUM 8.1 mg/dL (8.5-10.1); MAGNESIUM 2.2 mg/dL (1.8-2.4)
[2023-12-19 07:43] LABS: CREATININE 0.5 mg/dL (0.55-1.3)
[2023-12-19 07:44] LABS: PHOSPHOROUS 2.5 mg/dL (2.5-4.9)
[2023-12-19 07:45] LABS: BILIRUBIN,TOTAL 1.1 mg/dL (0.2-1); TOT PROT 7.2 g/dl (6.4-8.2)
[2023-12-19] MEDS ORDERED: PIPERACILLIN/TAZOB 3.375 GM 3.375 GM/50 ML BAG IVPB ONE (09:02)
[2023-12-19] MEDS ORDERED: amLODIPine BESYLATE 10 MG TABLET (FP) PO SCH (10:00)
[2023-12-19] MEDS ORDERED: PANTOPRAZOLE 40 MG TABLET PO ONE (11:02)
[2023-12-19] MEDS ORDERED: THIAMINE 100 MG TABLET ONE (11:02)
[2023-12-19] MEDS ORDERED: LABETALOL HCL 100 MG TABLET (FP) ONE (11:02)
[2023-12-19] MEDS ORDERED: ENOXAPARIN NA (PORCINE) 40 MG/0.4 ML DISP.SYRIN SQ ONE (11:03)
[2023-12-19] MEDS ORDERED: FOLIC ACID 1 MG TABLET (FP) ONE (11:03)
[2023-12-19] MEDS: FOLIC ACID 1 MG TABLET (FP) PO SCH (11:10)
[2023-12-19] MEDS: PANTOPRAZOLE 40 MG TABLET PO SCH (11:10)
[2023-12-19] MEDS: ENOXAPARIN NA (PORCINE) 40 MG/0.4 ML DISP.SYRIN SQ SCH (11:10)
[2023-12-19] MEDS: THIAMINE 100 MG TABLET PO SCH (11:10)
[2023-12-19] MEDS: LABETALOL HCL 100 MG TABLET (FP) PO SCH (11:10)
[2023-12-19] MEDS ORDERED: ONDANSETRON 4 MG/2 ML VIAL ONE (11:31)
[2023-12-19 19:22] VITALS: BMI 20.7
[2023-12-20 09:46] LABS: BASO % 0.5 % (0-2.0); EOS % 1.3 % (0-4.5); HEMOGLOBIN 12.5 GM/dL (11.7-16.9); LYMPH % 12.2 % (8-40); MCHC 33.8 g/dl (32.0-35.9); MEAN CELL VOLUME 76.8 fl (80-96); MEAN PLT VOLUME 8.1 fl (7.5-11.1); MONO % 5.9 % (3.8-10.2); NEUT % 80.1 % (42.8-82.8); PLATELET COUNT 196 10^3/uL (134-434); RBC 4.82 M/mm3 (4.00-5.60); RDW 17.2 % (11.9-15.9); WHITE BLOOD COUNT 7.7 K/mm3 (4.0-10.0)
[2023-12-20 10:10] LABS: POTASSIUM 3.7 mmol/L (3.5-5.1)
[2023-12-20 10:28] LABS: TOT PROT 7.6 g/dl (6.4-8.2)
[2023-12-20 10:29] LABS: CREATININE 0.5 mg/dL (0.55-1.3)
[2023-12-20 10:30] LABS: MAGNESIUM 2.5 mg/dL (1.8-2.4)
[2023-12-20 10:32] LABS: ALBUMIN 3.3 g/dl (3.4-5.0); BLOOD UREA NITROGEN 6.8 mg/dL (7-18); CALCIUM 8.5 mg/dL (8.5-10.1)
[2023-12-20 10:34] LABS: BILIRUBIN,DIRECT 0.2 mg/dL (0.0-0.2)
[2023-12-20 10:35] LABS: PHOSPHOROUS 2.9 mg/dL (2.5-4.9)
[2023-12-20 10:36] LABS: BILIRUBIN,TOTAL 0.9 mg/dL (0.2-1)
[2023-12-20] MEDS: LACTATED RINGERS SOLUTION 1,000 ML/1,000 ML INFUS.BAG IV SCH (12:40)
[2023-12-21 08:17] VITALS: TEMP 97.1
[2023-12-21 09:03] LABS: HEMATOCRIT 33.5 % (35.4-49); HEMOGLOBIN 11.1 GM/dL (11.7-16.9); MCH 25.4 pg (25.7-33.7); MCHC 33.1 g/dl (32.0-35.9); MEAN CELL VOLUME 76.8 fl (80-96); PLATELET COUNT 169 10^3/uL (134-434); RBC 4.36 M/mm3 (4.00-5.60); RDW 17.4 % (11.9-15.9); WHITE BLOOD COUNT 6.6 K/mm3 (4.0-10.0)
[2023-12-21 09:23] LABS: POTASSIUM 3.5 mmol/L (3.5-5.1)
[2023-12-21 09:24] LABS: CALCIUM 8.1 mg/dL (8.5-10.1)
[2023-12-21 09:25] LABS: ALBUMIN 2.9 g/dl (3.4-5.0)
[2023-12-21 09:29] LABS: CREATININE 0.5 mg/dL (0.55-1.3)
[2023-12-21 09:30] LABS: BILIRUBIN,TOTAL 0.6 mg/dL (0.2-1); TOT PROT 6.9 g/dl (6.4-8.2)
[2023-12-21] MEDS: MULTIVITAMINS (DAILY MVI) TABLET (FP) PO SCH (10:24)
[2023-12-21] MEDS: LISINOPRIL 20 MG TABLET PO SCH (12:12)
[2023-12-21 12:17] VITALS: BP 139/85; PULSE 89; RESP 16
== END 2023-12-21 14:41 | disposition home or self-care (01) | DRG 282 ==
LOC: JER 16:12 → JERBED 12-19 00:54 → J5S 12-19 18:08
PROVIDERS: ADMIT Internal Medicine; ATTEND Student in an Organized Health Care Education/Training Program
DX: K85.20 Alcohol induced acute pancreatitis without necrosis or infection (principal); K76.0 Fatty (change of) liver, not elsewhere classified; I10 Essential (primary) hypertension; E78.5 Hyperlipidemia, unspecified; K57.90 Diverticulosis of intestine, part unspecified, without perforation or abscess without bleeding; N40.0 Benign prostatic hyperplasia without lower urinary tract symptoms; R10.13 Epigastric pain; R11.2 Nausea with vomiting, unspecified; F10.20 Alcohol dependence, uncomplicated; R74.01 Elevation of levels of liver transaminase levels
CPT/HCPCS: 36415; 71045-TC-FY; 74177-TC; 76705-TC; 80053; 81003; 82248; 82962; 83036; 83690; 83735; 84100; 84478; 84484; 85025; 85027; 86850; 86900; 86901; 87086; 93005; 93010; 99285-25; J0131; Q9967

== ENCOUNTER 2024-10-12 21:38 | Inpatient (IN) | payer OTHER ==
[2024-10-13] MEDS ORDERED: ONDANSETRON 4 MG/2 ML VIAL ONE (00:14)
[2024-10-13] MEDS ORDERED: ACETAMINOPHEN INJECTION 100 ML ONE (00:14)
[2024-10-13] MEDS: ACETAMINOPHEN 1000 MG/100 ML BAG IVPB ONE (00:30)
[2024-10-13] MEDS: SODIUM CHLORIDE 0.9% 500 ML INFUS.BAG IV ONE ×2 (00:30→01:48)
[2024-10-13] MEDS: ONDANSETRON 4 MG/2 ML VIAL IVPB ONE (00:30)
[2024-10-13 00:33] LABS: ABSOLUTE IMMATURE GRANULOCYTES 0.03 x10^3/uL (0.0-0.031); BASOPHILS # 0.01 x10^3/uL (0.01-0.08); EOSINOPHIL % 0.1 % (0.8-7.0); EOSINOPHILS # 0.01 x10^3/uL (0.04-0.54); HEMATOCRIT 41.9 % (40.1-51.0); HEMOGLOBIN 13.5 g/dL (13.7-17.5); MCHC 32.2 g/dl (32.3-36.5); MEAN CELL VOLUME 81.2 fl (79.0-92.2); MEAN PLT VOLUME 9.8 fl (9.4-12.4); MONOCYTE # 0.34 x10^3/uL (0.30-0.82); MONOCYTE % 4.8 % (5.3-12.2); PLATELET COUNT # 214 x10^3/uL (163-337); RDW 16.1 % (12.2-16.4)
[2024-10-13 00:53] LABS: CHLORIDE 103 mmol/L (98-107); POTASSIUM 3.8 mmol/L (3.5-5.1); SODIUM 138 mmol/L (136-145)
[2024-10-13 00:54] LABS: CALCIUM 8.7 mg/dL (8.5-10.1)
[2024-10-13 00:55] LABS: ALBUMIN 3.5 g/dl (3.4-5.0); ANION GAP 8 mmol/L (4-13); CO2 27 mmol/L (21-32); GLUCOSE,RANDOM 151 mg/dL (74-106)
[2024-10-13 00:58] LABS: CREATININE 0.7 mg/dL (0.55-1.3); SGOT/AST 43 U/L (15-37); SGPT/ALT 47 U/L (13-61)
[2024-10-13 00:59] LABS: BILIRUBIN,TOTAL 0.4 mg/dL (0.2-1); TOT PROT 7.9 g/dl (6.4-8.2)
[2024-10-13 01:01] LABS: ALK PHOS 136 U/L (45-117)
[2024-10-13] MEDS: morphine CARPU-JECT 4 MG/1 ML DISP.SYRIN IVPUSH ONE (01:48)
[2024-10-13] MEDS ORDERED: morphine SULFATE 4 MG/ML VIAL ONE (01:49)
[2024-10-13] MEDS ORDERED: oxyCODONE HCL 5 MG TABLET PO PRN ×2 (02:17→08:37)
[2024-10-13] MEDS ORDERED: MORPHINE SULFATE 2 MG/ML SYRINGE IVPUSH PRN (02:17)
[2024-10-13] MEDS ORDERED: ONDANSETRON 4 MG/2 ML VIAL IVPUSH PRN (02:21)
[2024-10-13] MEDS ORDERED: DEXTROSE 5%-0.45% SALINE 1,000 ML IV SCH (02:30)
[2024-10-13] MEDS: FOLIC ACID 1 MG TABLET (FP) PO ONE (04:43)
[2024-10-13 06:10] VITALS: BMI 22.1
[2024-10-13] MEDS: FOLIC ACID INJECTION - 1 MG, THIAMINE HCL 100 MG, MULTIVIT INJECTION ADULT 10 ML in SOD... IVPB ONE (06:46)
[2024-10-13] MEDS ORDERED: traMADol HCL 50 MG TABLET PO PRN (08:38)
[2024-10-13] MEDS ORDERED: ACETAMINOPHEN 1000 MG/100 ML BAG IVPB PRN ×2 (08:39→09:00)
[2024-10-13] MEDS: THIAMINE 100 MG TABLET PO SCH (09:11)
[2024-10-13] MEDS: ENOXAPARIN NA (PORCINE) 40 MG/0.4 ML DISP.SYRIN SQ SCH (09:11)
[2024-10-13] MEDS: amLODIPine BESYLATE 10 MG TABLET (FP) PO SCH (09:11)
[2024-10-13] MEDS: KETOROLAC TROMETHAMINE 30 MG/1 ML VIAL IVPUSH SCH (09:12)
[2024-10-13] MEDS: PANTOPRAZOLE 40 MG TABLET PO SCH (09:12)
[2024-10-13 09:24] LABS: URINE APPEARANCE CLEAR; URINE BILIRUBIN NEGATIVE (NEGATIVE); URINE COLOR YELLOW; URINE GLUCOSE (UA) NEGATIVE (NEGATIVE); URINE KETONE NEGATIVE (NEGATIVE); URINE LEUK ESTERASE NEGATIVE (NEGATIVE); URINE NITRITE NEGATIVE (NEGATIVE); URINE PROTEIN NEGATIVE (NEGATIVE); URINE UROBILINOGEN 0.2 mg/dL (0.2-1.0)
[2024-10-13 11:23] LABS: CHOLESTEROL 208 mg/dL (50-200)
[2024-10-13 11:25] LABS: LDL CHOLESTEROL (ONLY SJRH) 111 mg/dL (5-100)
[2024-10-13 11:26] LABS: HDL CHOLESTEROL 30 mg/dL (40-60)
[2024-10-13] MEDS: FENOFIBRIC ACID 45 MG CAP PO ONE (13:51)
[2024-10-13] MEDS: LACTATED RINGERS SOLUTION 1,000 ML/1,000 ML INFUS.BAG IV SCH (15:15)
[2024-10-14] MEDS ORDERED: LORazepam 2 MG/ML SDV VIAL IVPUSH PRN (07:50)
[2024-10-14 09:10] LABS: INR 1.1 (0.83-1.09)
[2024-10-14 09:25] LABS: POTASSIUM 3.3 mmol/L (3.5-5.1)
[2024-10-14 09:49] LABS: CALCIUM 8.1 mg/dL (8.5-10.1)
[2024-10-14 09:50] LABS: BLOOD UREA NITROGEN 3.5 mg/dL (7-18); HEMATOCRIT 37.4 % (40.1-51.0); HEMOGLOBIN 11.7 g/dL (13.7-17.5); MCHC 31.3 g/dl (32.3-36.5); MEAN CELL VOLUME 82.9 fl (79.0-92.2); MEAN PLT VOLUME 9.9 fl (9.4-12.4); PLATELET COUNT # 199 x10^3/uL (163-337); RDW 16.5 % (12.2-16.4)
[2024-10-14 09:53] LABS: CREATININE 0.6 mg/dL (0.55-1.3)
[2024-10-14 09:54] LABS: BILIRUBIN,TOTAL 0.8 mg/dL (0.2-1); TOT PROT 6.5 g/dl (6.4-8.2)
[2024-10-14] MEDS: FOLIC ACID 1 MG TABLET (FP) PO SCH (09:58)
[2024-10-14 09:59] LABS: ALBUMIN 2.7 g/dl (3.4-5.0)
[2024-10-14] MEDS: POTASSIUM CHLORIDE ORAL LIQUID 20 MEQ/15 ML PO ONE (11:13)
[2024-10-14] MEDS: FENOFIBRIC ACID 45 MG CAP PO ONE (11:14)
[2024-10-14 16:42] VITALS: RESP 18
[2024-10-14 20:03] LABS: HCV DIAGNOSTIC IN-HOUSE W/RFLX NON-REACTIVE (NONREACTIVE)
[2024-10-15 08:36] LABS: ABSOLUTE IMMATURE GRANULOCYTES 0.02 x10^3/uL (0.0-0.031); BASOPHILS # 0.02 x10^3/uL (0.01-0.08); EOSINOPHIL % 6.9 % (0.8-7.0); EOSINOPHILS # 0.34 x10^3/uL (0.04-0.54); HEMATOCRIT 36.2 % (40.1-51.0); HEMOGLOBIN 11.5 g/dL (13.7-17.5); MCHC 31.8 g/dl (32.3-36.5); MEAN CELL VOLUME 83.2 fl (79.0-92.2); MEAN PLT VOLUME 9.7 fl (9.4-12.4); MONOCYTE # 0.43 x10^3/uL (0.30-0.82); MONOCYTE % 8.7 % (5.3-12.2); PLATELET COUNT # 222 x10^3/uL (163-337); RDW 16.6 % (12.2-16.4)
[2024-10-15 09:35] LABS: CALCIUM 8.6 mg/dL (8.5-10.1)
[2024-10-15 09:36] LABS: ALBUMIN 2.8 g/dl (3.4-5.0); BLOOD UREA NITROGEN 5.4 mg/dL (7-18)
[2024-10-15 09:39] LABS: CREATININE 0.6 mg/dL (0.55-1.3)
[2024-10-15 09:40] LABS: BILIRUBIN,TOTAL 0.6 mg/dL (0.2-1); TOT PROT 6.6 g/dl (6.4-8.2)
[2024-10-15 14:58] VITALS: BP 116/79; PULSE 92; TEMP 98.1
== END 2024-10-15 15:14 | disposition home or self-care (01) | DRG 282 ==
LOC: JER 21:38 → JERBED 10-13 01:36 → OBSVTOIN 10-13 02:17 → J5S 10-13 05:31
PROVIDERS: ADMIT Hospitalist; ATTEND Internal Medicine
DX: K85.20 Alcohol induced acute pancreatitis without necrosis or infection (principal); I10 Essential (primary) hypertension; K76.0 Fatty (change of) liver, not elsewhere classified; E78.5 Hyperlipidemia, unspecified; F10.10 Alcohol abuse, uncomplicated; K57.90 Diverticulosis of intestine, part unspecified, without perforation or abscess without bleeding
CPT/HCPCS: 36415; 76705-TC; 80053; 80061; 80307; 81003; 82150; 82787; 83690; 85025; 85027; 85610; 86140; 86301; 86706; 86803; 87340; 93005; 93010; 99285-25; G0378; J0131